=== PATIENT | male | born 1990 | race African-American/Black ===

== ENCOUNTER 2021-12-16 12:01 | Emergency (ER) | payer OTHER ==
[2021-12-16 12:13] VITALS: BP 138/95; PULSE 92; RESP 18; TEMP 98.4; BMI 43.2
[2021-12-16] MEDS ORDERED: diazePAM 5 MG TABLET PO ONE (12:49)
[2021-12-16] MEDS ORDERED: KETOROLAC TROMETHAMINE 30 MG/1 ML VIAL IM ONE (12:49)
[2021-12-16] MEDS ORDERED: LIDOCAINE 5% TOPICAL PATCH TP ONE (12:49)
[2021-12-16] MEDS ORDERED: ACETAMINOPHEN 500 MG TABLET (FP) PO ONE (12:49)
[2021-12-16] MEDS ORDERED: LIDOCAINE 5% TOPICAL PATCH ONE (12:58)
[2021-12-16] MEDS ORDERED: ACETAMINOPHEN 500 MG TABLET (FP) ONE (12:59)
[2021-12-16] MEDS ORDERED: KETOROLAC TROMETHAMINE 30 MG/1 ML VIAL ONE (12:59)
[2021-12-16] MEDS ORDERED: diazePAM 5 MG TABLET ONE (12:59)
[2021-12-16] MEDS ORDERED: LIDOCAINE PATCH REMOVAL MC ONE (22:00)
== END 2021-12-16 14:53 | disposition home or self-care (01) ==
LOC: JERFT 12:01
DX: M54.50 Low back pain, unspecified (principal); V89.2XXA Person injured in unspecified motor-vehicle accident, traffic, initial encounter
CPT/HCPCS: 72100-TC-FY; 99283-25